=== PATIENT | male | born 1940 | race Caucasian/White ===

== ENCOUNTER 2024-01-09 09:29 | Emergency (ER) | payer MEDICARE, BC, SELFPAY ==
[2024-01-09 09:45] VITALS: BP 127/66
[2024-01-09] MEDS: DECADRON 10 MG IV (10:32)
[2024-01-09] MEDS: DUONEB 3 ML INH (10:35)
[2024-01-09 10:41] LABS: % Basophils 0.5 % (0-2); % Eosinophils 1.4 % (0-6); % Immature Granulocytes 0.5 % (0-0.5); % Lymphocytes 18.9 % (20.5-51.1); % Monocytes 13.4 % (1.7-9.3); % Neutrophils 65.3 % (42.2-75.2); Absolute Eosinophils 0.1 10^3/uL (0-0.7); Absolute Lymphocytes 1.4 10^3/uL (1.2-3.4); Absolute Neutrophils 4.8 10^3/uL (1.4-6.5); Hematocrit 42.9 % (39.0-52.0); Hemoglobin 14.9 g/dL (13.0-18.0); Mean Corp Hgb Conc. 34.7 g/dL (33.0-37.0); Mean Corpuscular Hgb 32.3 pg (27.0-31.0); Mean Corpuscular Volume 93.1 fL (80.0-94.0); Mean Platelet Volume 9.1 fL (7.4-10.4); Nucleated Red Blood Cells % 0 % (-); Platelet Count 204 10^3/uL (130-400); Red Blood Cell Count 4.61 10^6/uL (4.70-6.10); Red Cell Dist. Width 13.5 % (11.5-14.5); White Blood Cell Count 7.4 10^3/uL (4.8-10.8)
--- NOTE | 2024-01-09 10:43 | ED.GENMED ---
History of Present Illness
General
Chief Complaint: Breathing Problem
Source: patient and spouse
Exam Limitations: dementia
Time Seen by Provider: 01/09/24 10:16
Nursing documentation reviewed up to this point in time: agreed with
Travel History
Have you had any contact with someone who has COVID-19?: No
Do you have any symptoms of coronavirus? Fever > 100 degrees, chills, cough, shortness of breath, sore throat, loss of taste or smell, muscle aches, or headache?: No
History of Present Illness
History of Present Illness:
83-year-old male with past medical history of dementia hypertension hyperlipidemia presenting to the emergency department today with concerns of ongoing shortness of breath over the past 2 days was recently diagnosed with pneumonia at the urgent
care 2 days ago started on Augmentin was also given albuterol and prednisone has been taking this as prescribed with symptoms. Has been having ongoing cough and does seem to be short of breath at times according to his . He denies any specific
chest pain fevers nausea vomiting.
Past History
Past History
ED Past Medical History: None
ED Past Surgical History: None
Review of Systems
Review of Systems
Allergies reviewed?: Yes
All Other Systems: ROS reviewed and negative except as documented in HPI and ROS
Phy Exam
Physical Exam
Physical Exam:
GENERAL: Alert , in no apparent distress
EYE: pupils equal and reactive
NECK: Supple, no significant adenopathy.
ENT: o/p clr, mmm.
CARDIAC: Regular rate and rhythm .
LUNGS: Diffuse inspiratory and expiratory wheezing
ABDOMEN: Soft, without focal tenderness, no r/g, no cvat
NEUROLOGICAL: Alert and oriented, no focal neuro deficits
SKIN: Warm and dry, skin intact.
MUSCULOSKELETAL: No edema, well perfused.
PSYCH: Normal and appropriate interaction.
Scores
Heart Failure Risk
Heart Failure Risk Score: Not Applicable
Course
Orders/Labs/Results
Orders:
Orders
01/09/24 09:40
ECG [Electrocardiogram (*1)] Urgent
Reason for Study: Shortness of Breath
EKG- Treatment ONCE
01/09/24 10:25
Dexamethasone Sod Phosphate [Decadron] 10 mg IV NOW STA
Ipratropium/Albuterol Sulfate [Duoneb] 3 ml INH R NOW STA
CR Chest - 2 Views Urgent
Comment:
Reason For Exam: cough sob
01/09/24 10:30
Basic Metabolic Panel Urgent
Complete Blood Count/With Diff Urgent
Abnormal Lab Results
01/09/24
10:30
RBC 4.61 L 10^6/uL
(4.70-6.10)
MCH 32.3 H pg
(27.0-31.0)
Absolute Monos (auto) 1.0 H 10^3/uL
(0.1-0.6)
Lymphocytes % 18.9 L %
(20.5-51.1)
Monocytes % 13.4 H %
(1.7-9.3)
Glucose 125 H mg/dl
(70-99)
01/09/24 10:30
01/09/24 10:30
Vital Signs
Initial and Last Documented VS:
Initial Vital Signs
Temp Pulse Resp BP Pulse Ox
98.8 F 72 18 127/66 96
01/09/24 09:45 01/09/24 09:45 01/09/24 09:45 01/09/24 09:45 01/09/24 09:45
Last Documented Vital Signs
Temp Pulse Resp BP Pulse Ox
98.8 F 72 18 127/78 91
01/09/24 09:45 01/09/24 09:45 01/09/24 09:45 01/09/24 12:00 01/09/24 12:15
MDM/Problems Addressed
MDM/Problems Addressed:
83-year-old male presenting to the emergency department today with concerns of shortness of breath over the past 2 days recently diagnosed with pneumonia taking antibiotics as well as steroid and albuterol at home. On arrival here vital signs are
normal patient no distress does have inspiratory aspiratory wheezing on exam but is able to speak in full sentences. X-ray was performed did not show any signs of pneumonia labs unremarkable patient generally well-appearing throughout ER stay he
claims he feels much better after DuoNeb and additional steroid dose. He was written for a longer taper advised for close outpatient follow-up. He was ambulated prior to discharge and had pulse ox remaining in the 90s throughout and appeared very
comfortable throughout.
*Critical Care Note
Total Time (30-74mins, 75-104mins- exclusive of procedures): Not Applicable
ED Attending Note
-
Portions of this chart may have been created with voice recognition software.� Occasional wrong word or��sound alike� substitutions may have occurred due to the inherent limitations of voice recognition software.
Discharge Plan
Departure
Patient Disposition: Home (Routine Discharge)
Date of Disposition: 01/09/24
Time of Disposition: 12:56
Patient with high blood pressure during this ER visit?: No
Condition: Good
Covid-19: Not Applicable
Discharge Problem:
Diffuse wheezing
Instructions: Acute Bronchitis, Adult (DC), Wheezing
Prescriptions:
New
prednisone 10 mg Tablet
See Rx Instructions .ROUTE .COMPLEX Qty: 45 0RF
Rx Instructions:
Take By Mouth:
50 mg daily x3 days, 40 mg daily x3 days,
30 mg daily x3 days, 20 mg daily x3 days,
10 mg daily x3 days
albuterol sulfate 2.5 mg /3 mL (0.083 %) solution for nebulization
2.5 mg inhalation QID PRN (Reason: shortness of breath or wheezing) Qty: 180 0RF
Referrals:
Franco Sanz DO [Family Provider] -
Activity Restrictions/Additional Instructions:
You came to the emergency department today with concerns of shortness of breath. You are found to have ongoing wheezing here. No signs of pneumonia on the chest x-ray. Please take the newly prescribed prednisone taper at its prescribed dosing.
Please additionally use the nebulizer as needed. Return to the emergency department for any worsening, new or concerning symptoms.
Interventions
Interventions:
*Risk Screen - Suicide Last Done: 01/09/24 10:20
*Neglect/Abuse Screening Last Done: 01/09/24 10:20
ED- Fall Risk Assessment Last Done: 01/09/24 10:38
*ED COVID-19 Vaccine History Last Done: 01/09/24 09:55
ED- Cardiac Assessment Last Done: 01/09/24 10:38
ED- Pulmonary Assessment Last Done: 01/09/24 10:38
Discharge Date and Time
Print Language: SPANISH
[2024-01-09 10:55] VITALS: BP 131/69
[2024-01-09 11:00] VITALS: BP 131/78
[2024-01-09 11:00] LABS: Blood Urea Nitrogen 20 mg/dl (9-20); Calcium 9.3 mg/dl (8.4-10.2); Carbon Dioxide 23 mmol/L (22-30); Chloride 105 mmol/L (98-107); Glucose 125 mg/dl (70-99); Sodium 135 mmol/L (135-145); eGFR > 60.00
[2024-01-09 11:54] VITALS: BP 135/74
[2024-01-09 12:00] VITALS: BP 127/78
== END 2024-01-09 13:06 | disposition home or self-care (01) ==
LOC: EMR 09:29
PROVIDERS: Physician Assistant; EMERGENCY PHYSICIAN Emergency Medicine; FAMILY PHYSICIAN Family Medicine Sports Medicine
DX: R06.2 Wheezing (principal); R06.02 Shortness of breath; J18.9 Pneumonia, unspecified organism; F03.90 Unspecified dementia, unspecified severity, without behavioral disturbance, psychotic disturbance, mood disturbance, and anxiety; I10 Essential (primary) hypertension; E78.5 Hyperlipidemia, unspecified
CPT/HCPCS: 99284; 96374; 94640; 71046; 80048; 85025; 93005